=== PATIENT | female | born 1965 | race Caucasian/White ===

== ENCOUNTER 2024-01-15 20:58 | Inpatient (IN) | payer OTHER ==
[~2024-01-15] VITALS: Ht 167.6 cm; Wt 87.5 kg
[2024-01-15 21:25] LABS: BASOPHILS ABSOLUTE AUTO 0.07 K/mm3 (0.00-0.23); BASOPHILS PERCENT AUTO 1 % (0-2); EOSINOPHILS ABSOLUTE AUTO 0.08 K/mm3 (0.00-0.68); EOSINOPHILS PERCENT AUTO 1 % (0-6); Hematocrit 45.2 % (33.0-51.0); Hemoglobin 14.9 g/dL (11.5-16.0); IMMATURE GRAN ABSOLUTE AUTO 0.04 K/mm3 (0.00-0.10); IMMATURE GRAN PERCENT AUTO 0 % (0-1); LYMPHOCYTES ABSOLUTE AUTO 1.52 K/mm3 (0.84-5.20); LYMPHOCYTES PERCENT AUTO 16 % (21-46); MONOCYTES ABSOLUTE AUTO 0.85 K/mm3 (0.16-1.47); MONOCYTES PERCENT AUTO 9 % (4-13); Mean Corpuscular HGB 31.2 pg (26.0-34.0); Mean Corpuscular Volume 95 fL (80-100); Mean Platelet Volume 8.3 fL (9.1-12.4); NEUTROPHILS ABSOLUTE AUTO 6.71 K/mm3 (1.96-9.15); NEUTROPHILS PERCENT AUTO 72 % (41-73); Platelet Count 348 K/mm3 (150-400); RDW Coefficient Variation 15.1 % (11.7-14.2); RDW Standard Deviation 53.1 fL (35.1-46.3); Red Blood Cell Count 4.77 M/mm3 (3.80-5.20); White Blood Cell Count 9.27 K/mm3 (4.00-11.30)
[2024-01-15 21:43] LABS: Albumin, Blood 3.2 g/dL (3.4-5.0); Albumin/Globulin Ratio 0.7 (0.8-1.8); Bilirubin, Total 0.9 mg/dL (0.1-1.0); Bun/Creatinine Ratio 9.5 (12.0-20.0); Calcium, Blood 8.8 mg/dL (8.5-10.1); Creatinine, Blood 0.63 mg/dL (0.40-1.00); Globulin, Blood 4.3 g/dL (2.2-4.0); Total Protein, Blood 7.5 g/dL (6.4-8.2)
[2024-01-15] MEDS ORDERED: PRAM.125 PO (22:31)
[2024-01-15] MEDS ORDERED: Prozac20 MG PO (22:32)
[2024-01-15] MEDS ORDERED: FLUT1DIS8 INH (22:32)
[2024-01-15] MEDS ORDERED: ESTR2 PO (22:33)
[2024-01-15] MEDS ORDERED: OMEP20ER PO (22:33)
[2024-01-15] MEDS ORDERED: Ipratropium/Albuterol SulF 2.5-0.5MG/3 ML Amp INH ONE ×2 (23:00)
[2024-01-15] MEDS ORDERED: MethylPREDNISolone Sod Succ 125 MG Vial IV ONE (23:00)
[2024-01-15] MEDS ORDERED: CefTRIAXone Sodium 1,000 MG in NS 100 ML IV ONE (23:05)
[2024-01-15] MEDS ORDERED: LORazepam 2 MG/ML 1ML Injection IV ONE (23:25)
[2024-01-15] MEDS ORDERED: Pramipexole DI-HCL 1 Mg Tab PO ONE (23:45)
[2024-01-16] MEDS ORDERED: DiphenhydrAMINE HCl 50 MG/ML 1ML Vial IV ONE (00:15)
[2024-01-16] MEDS ORDERED: LORazepam 2 MG/ML 1ML Injection IV ONE ×2 (00:15→02:00)
[2024-01-16] MEDS ORDERED: LORazepam 2 MG/ML 1ML Injection ONE (00:19)
[2024-01-16] MEDS ORDERED: DiphenhydrAMINE HCl 50 MG/ML 1ML Vial ONE (00:20)
[2024-01-16] MEDS ORDERED: Benztropine Mesylate 1 MG/ML 2ML Amp IV ONE (00:50)
[2024-01-16] MEDS ORDERED: Acetaminophen 325 MG TABLET PO PRN (00:55)
[2024-01-16] MEDS ORDERED: Ipratropium/Albuterol SulF 2.5-0.5MG/3 ML Amp INH SCH (01:00)
[2024-01-16 01:43] LABS: Thyroid Stimulating Hormone 2.32 uIU/mL (0.360-4.800)
[2024-01-16] MEDS ORDERED: Azithromycin 500 MG in NS 250 ML IV SCH (02:00)
[2024-01-16 02:03] LABS: Magnesium, Blood 1.8 mg/dL (1.6-2.4)
[2024-01-16] MEDS ORDERED: Gabapentin 300 MG Cap PO ONE (03:00)
[2024-01-16 03:10] LABS: Base Excess Venous 2.6 mmol/L; Bicarbonate Venous 26.7 mmol/L (24.0-30.0); PCO2 Venous 39.3 mmHg (38-42); pH Blood Venous 7.44 (7.34-7.37)
[2024-01-16 03:34] LABS: Source, Urine Clean Catch
[2024-01-16 03:37] LABS: Bilirubin, Urine Neg (Neg); Blood, Urine Neg (Neg); Glucose Qualitative, Urine Neg (Neg); Ketones, Urine Neg (Neg); Leukocyte Esterase, Urine Neg (Neg); Nitrite, Urine Neg (Neg); Protein, Urine Neg (Neg); Specific Gravity, Urine 1.005 (1.003-1.022); Urobilinogen, Urine NORM (Normal)
[2024-01-16 03:41] LABS: Appearance, Urine Clear (Clear); Color, Urine Yellow (P-Yellow)
[2024-01-16 04:01] LABS: U Amphetamine Screen Not Detected; U Barbituate Screen Not Detected; U Benzodiazapine Screen DETECTED; U Buprenorphine Screen Not Detected; U Cannabinoids Screen Not Detected; U Cocaine Screen Not Detected; U Methadone Screen Not Detected; U Methamphetamine Screen Not Detected; U Opiates Screen Not Detected; U Oxycodone Screen Not Detected; U Phencyclidine Screen Not Detected
[2024-01-16 05:46] LABS: BASOPHILS ABSOLUTE AUTO 0.03 K/mm3 (0.00-0.23); BASOPHILS PERCENT AUTO 0 % (0-2); EOSINOPHILS PERCENT AUTO 0 % (0-6); Hematocrit 45.2 % (33.0-51.0); Hemoglobin 14.7 g/dL (11.5-16.0); IMMATURE GRAN ABSOLUTE AUTO 0.07 K/mm3 (0.00-0.10); IMMATURE GRAN PERCENT AUTO 1 % (0-1); LYMPHOCYTES ABSOLUTE AUTO 0.34 K/mm3 (0.84-5.20); LYMPHOCYTES PERCENT AUTO 4 % (21-46); MONOCYTES ABSOLUTE AUTO 0.06 K/mm3 (0.16-1.47); MONOCYTES PERCENT AUTO 1 % (4-13); Mean Corpuscular HGB 31.8 pg (26.0-34.0); Mean Corpuscular HGB Conc 32.5 g/dL (31.5-36.5); Mean Corpuscular Volume 98 fL (80-100); Mean Platelet Volume 8.8 fL (9.1-12.4); NEUTROPHILS ABSOLUTE AUTO 8.59 K/mm3 (1.96-9.15); NEUTROPHILS PERCENT AUTO 95 % (41-73); Platelet Count 323 K/mm3 (150-400); Red Blood Cell Count 4.62 M/mm3 (3.80-5.20); White Blood Cell Count 9.09 K/mm3 (4.00-11.30)
[2024-01-16] MEDS ORDERED: MethylPREDNISolone Sod Succ 125 MG Vial IV SCH (06:00)
[2024-01-16 06:06] LABS: Albumin/Globulin Ratio 0.7 (0.8-1.8); Bilirubin, Total 0.6 mg/dL (0.1-1.0); Bun/Creatinine Ratio 9.7 (12.0-20.0); Calcium, Blood 8.1 mg/dL (8.5-10.1); Creatinine, Blood 0.62 mg/dL (0.40-1.00); Globulin, Blood 4.2 g/dL (2.2-4.0); Magnesium, Blood 2.1 mg/dL (1.6-2.4); Potassium, Blood 4.4 mmol/L (3.5-5.5); Total Protein, Blood 7.2 g/dL (6.4-8.2)
[2024-01-16] MEDS ORDERED: GuaiFENesin 600 MG TabCR PO SCH (09:00)
[2024-01-16] MEDS ORDERED: Lactobacil 2-S.Thermo-Bifido 1 1 Cap PO SCH ×2 (09:00→21:00)
[2024-01-16] MEDS ORDERED: Enoxaparin 40 MG/0.4 ML SYR SC SCH (09:00)
[2024-01-16] MEDS ORDERED: CefTRIAXone Sodium 1,000 MG in NS 100 ML IV SCH (15:00)
[2024-01-16] MEDS ORDERED: LORazepam 2 MG/ML 1ML Injection IV PRN (17:40)
[2024-01-16] MEDS ORDERED: Polyethylene Glycol 3350 17 gm PO PRN (17:40)
[2024-01-16] MEDS ORDERED: ChlordiazePOXIDE 25 MG Cap PO PRN (17:45)
[2024-01-16] MEDS ORDERED: Folic Acid 1 MG TAB PO SCH (18:00)
[2024-01-16] MEDS ORDERED: Pramipexole DI-HCL 0.25 MG Tab PO SCH (18:00)
[2024-01-16] MEDS ORDERED: Thiamine HCl 100 MG Tab PO SCH (18:00)
[2024-01-16 18:33] VITALS: BP 131/77
--- NOTE | 2024-01-16 18:51 | NUR ---
NURSING PCU DAYSHIFT SUMMARY: Arrived from ER via gurney accompanied by RN. Roberto to unit bed via slider. Pt appears oriented, bed alarm set for safety. SBP 130's, NSR, c/o R chest/shoulder discomfort, PMD aware. 3L NC, O2 sat low 90's, respiratory status stable. Bed bath, linen change completed. Call light in reach. Monitor until rpt is given to NOC RN.
[2024-01-16] MEDS ORDERED: Mometasone/Formoterol MDI 200/5 mcg 13 GM INH SCH (19:25)
[2024-01-16] MEDS ORDERED: Ketorolac Tromethamine 30mg Vial IV PRN (19:30)
[2024-01-16 19:53] VITALS: BP 135/74
--- NOTE | 2024-01-16 20:00 | NUR ---
ASSUMPTION OF CARE PT LYING IN BED ON LEFT SIDE APPEARING TO BE IN PAIN AND MOVING LEGS CONSTANTLY. PT ALERT AND ORIENTED TO ALL. PT HR 91 AND BP 131/77. PT DOES C/O CHEST PAIN- RIGHT SIDE DEEP, PT RIGHT CHEST PAIN HAS NOT RESPONDED TO TYLENOL, TORADOL, BREATHING 9/10 STABBBING, RADIATING TO BACK. WORSE WITH BREATHING, COUGHING, MOVEMENT. TENDERNESS TO PALPATION AT LEVEL OF NIPPLE ANTERIOR CHEST AND AXILLARY. WHEN THE PT PT BREATHES IN DEEP THE PAIN LOCALIZES ABOUT RIB 7/8 MIDAXILLARY LINE. PT SAT 94% ON 3L NC. NO SOB. TACHYPNEIC. NO ABDOMINAL PAIN, N/V. MILD EDEMA NOTED IN RIGHT LEG THROUGH FOOT. PIV IN LFA. PT SAID SHE IS HUNGRY. PT LEFT IN ROOM WITH CALL LIGHT HANDY.
--- NOTE | 2024-01-16 21:32 | NUR ---
UPDATE PT RIGHT CHEST PAIN HAS NOT RESPONDED TO TYLENOL, TORADOL, BREATHING TREATMENT. PT SAYS SHE HAS HISTORY OF OA AND CAN HANDLE PAIN NORMALLY. SHE SAYS SHE AHS NEVER FELT PAIN LIKE THIS BEFORE. 9/10 STABBBING, RADIATING TO BACK. WORSE WITH BREATHING, COUGHING, MOVEMENT. TENDERNESS TO PALPATION AT LEVEL OF NIPPLE ANTERIOR CHEST AND AXILLARY, NOT POSTERIOR. DR BLACKBURN CALLED AND INFORMED. PROVIDER SAID SHE WILL LOOK AT CHART AND PUT AN ORDER IN FOR SOMETHING TO ADDRESS PAIN.
[2024-01-16] MEDS ORDERED: OxyCODONE 5 mg/Acetamin 325 mg TABLET PO PRN (22:05)
[2024-01-16 23:58] VITALS: BP 111/63
[2024-01-17] VITALS (7 sets, daily range): BP systolic 96–147; BP diastolic 66–111
[2024-01-17 03:50] LABS: Hematocrit 41.1 % (33.0-51.0); Hemoglobin 13.6 g/dL (11.5-16.0); Mean Corpuscular HGB 31.6 pg (26.0-34.0); Mean Corpuscular HGB Conc 33.1 g/dL (31.5-36.5); Mean Corpuscular Volume 95 fL (80-100); Mean Platelet Volume 8.8 fL (9.1-12.4); Platelet Count 326 K/mm3 (150-400); RDW Standard Deviation 53.2 fL (35.1-46.3); Red Blood Cell Count 4.31 M/mm3 (3.80-5.20); White Blood Cell Count 12.04 K/mm3 (4.00-11.30)
[2024-01-17 04:21] LABS: Bun/Creatinine Ratio 19.3 (12.0-20.0); Calcium, Blood 8.7 mg/dL (8.5-10.1); Creatinine, Blood 0.72 mg/dL (0.40-1.00); Potassium, Blood 4.3 mmol/L (3.5-5.5)
--- NOTE | 2024-01-17 05:30 | NUR ---
UPDATE PT FELL AT 0438. SAM RN AND CEE RN CAME IN TO ROOM FIRST TO FIND PT ARISING FROM LEFT KNEE. PT WAS SLOWLY MOVED THE 3 FEET TO THE BED, REASSESSED, VITALS CHECKED. A NEW BUMP/SWELLING WAS FOUND ON PTS LEFT WRIST BETWEEN THUMB AND INDEX FINGER, TTP BUT MOVEMENT, SENSATION, TEMP AND SIGNS OF PERFUSION DISTAL TO INJURY INTACT. COLD COMPRESS WAS PLACED ON BUMP. PT SAID SHE WAS GOING TO BATHROOM AND GOT CAUGHT ON A CORD WHICH KEPT HER FROM REACHING TOILET. SHE WAS FORCED TO URINATE ON THE FLOOR. PT CLEANED SOME OF HER URINE UP WITH THE WASH CLOTH NEARBY. WHEN SHE WENT TO SEARCH FOR ANOTHER TOWEL, SHE SLIPPED ON THE URINE AND FELL TO LEFT KNEE AND LEFT WRIST. NO HEAD CONTACT WITH FLOOR. PROVIDER ANNE WAS CALLED. HE SUGGESTED MONITORING, TAKING STEPS TO ADJUST CARE ACCORDINGLY TO PREVENT FUTURE FALLS, AND POSSIBLE XRAY OF WRIST. APPROPRIATE NURSING LEADERS NOTIFIED. APPROPRIATE PAPERWORK FILLED OUT.
[2024-01-17] MEDS ORDERED: Omeprazole 20 MG CapCR PO SCH (06:00)
--- NOTE | 2024-01-17 07:23 | NUR ---
SHIFT SUMMARY PT LYING IN BED IN MILD DISTRESS, MOVING LEGS CONSTANTLY AND C/O RIGHT SIDED CHEST PAIN.. HR NSR 88 AND BP STABLE. NO CHEST PRESSURE OR OTHER FORMS OF CHEST PAIN INDICATIVE OF ACS. RESP MILDLY TACHYPEIC. PT SAT 97% ON 5L NC. NO ABDOMINAL PAIN, N/V. PT AMBULATES WELL WHEN CORDS ARE NOT INVOLVED. FULL-WEIGHT BEARING ON BOTH LEGS. PT AGAIN INSTRUCTED TO USE CALL LIGHT WHEN BATHROOM IS NEEDED.
[2024-01-17] MEDS ORDERED: Estradiol 1 MG Tab PO SCH (09:00)
[2024-01-17] MEDS ORDERED: FLUoxetine HCL 20 MG CAP PO SCH (09:00)
--- NOTE | 2024-01-17 09:39 | NUR ---
AM NOTE this rn assumed care at 0700. vital signs stable. spo2 >90% on 3l nc. tele sinus. patient is alert and oriented x4. neuro is intact. patient is able to make needs known. patient has history of restless leg syndrome and will become uncomfortable and having more frequent episdodes due to not being on restless leg syndrome recently from running out of medication. denies chest pain/pressure or shortness of breath. patient reports pain in right shoulder and left wrist rated at 7/10 and upon reassessment rated at 4. see shift assessment for further detials. plan of care is up to date at this time
--- NOTE | 2024-01-17 12:19 | NUR ---
update md tan in to see patient and patients left wrist. md wanting splint on left wrist at this time. splint is in place.
[2024-01-17] MEDS ORDERED: Benzonatate 100 MG Cap PO PRN (14:55)
[2024-01-17] MEDS ORDERED: MethylPREDNISolone Sod Succ 40 MG VIAL IV SCH (16:00)
--- NOTE | 2024-01-17 18:02 | NUR ---
SHIFT SUMMARY vitals remain stable. patient on room air in the room with spo2 >90%, but does need oxygen with activity. patient worked with physical therapy this evening. md tan in and redid splint on arm to be above the elbow joint. no acute changes. plan remains up to date
[2024-01-17] MEDS ORDERED: rOPINIRole HCl 0.25 MG Tab PO PRN (20:10)
[2024-01-18 03:36] VITALS: BP 105/57
[2024-01-18 04:07] LABS: Percent Saturation 17.3 % (15.0-50.0)
--- NOTE | 2024-01-18 04:55 | NUR ---
SHIFT SUMMARY. SHIFT HAS BEEN MOSTLY UNREMARKABLE. PT AOX4, PLEASANT, COOPERATIVE WITH CARE, CALLS APPROPRIATELY, ABLE TO MAKE NEEDS KNOWN. HAS BEEN ABLE TO REST COMFORTABLY THROUGHOUT MUCH OF SHIFT. PAIN HAS BEEN ADEQUATELY MANAGED VIA EMAR. WITHDRAWAL SYMPTOMS HAVE BEEN MINIMAL AND WERE WELL MANAGED FROM 1 PRN DOSE OF LIBRIUM. O2 DEMANDS HAVE REMAINED STABLE AND PT HAS MAINTAINED ADEQUATE SATURATION ON 2-4 L O2 VIA NC. VITALS HAVE REMAINED STABLE. PT REMAINS STEADY SBA TO BATHROOM AND CALLS APPROPRIATELY FOR ASSISTANCE. BED LOCKED IN LOWEST POSITION. CALL LIGHT LEFT WITHIN REACH. CONTINUING TO MONITOR.
[2024-01-18 08:00] VITALS: BP 99/65
[2024-01-18 08:26] VITALS: BP 99/65
[2024-01-18] MEDS ORDERED: Polyethylene Glycol 3350 17 gm PO SCH (09:00)
[2024-01-18] MEDS ORDERED: Nicotine 14 MG PATCH TOP SCH (09:00)
--- NOTE | 2024-01-18 09:55 | NUR ---
0700 assumed pt Patient was awake and alert and oriented x 4. She was standing at the bedside d/t her legs bothering her. She states she has restless leg. She is on 2l NC when up moving her oxygenation was down to 90%. Patient has pppx 3 ext. with Edema to left lower leg greater than her right. She has a raspy cough. She has fine crackles in the bases bilat. on exhalation. She is afebrile and vs stable. Patient has 1 IV to right FA that is saline locked and for antibiotics. She has a cast to left FA and finger tips are warm to the touch and cap refill is less than 3 sec. to digits.
[2024-01-18 12:25] VITALS: BP 103/73
[2024-01-18] MEDS ORDERED: Furosemide 10 MG / ML 2ML Vial IV STA (14:35)
--- NOTE | 2024-01-18 16:19 | NUR ---
UPDATE PT HAS BEEN UP OUT OF BED [place]. THIS AFTERNOON. SHE HAS BEEN WORKING WITH PT/OT/RT WALKING AROUND WITH A WALKER IN THE HOSPITAL. SHE HAS BEEN TO THE BATHROOM MULITPLE TIMES SINCE SHE GOT LASIX THIS AFTERNOON. SHE STATED THE SWELLING WAS LESS IN HER LEGS BUT AFTER WALKING AROUND SO MUCH THE LEFT LEG HAS SWOLLEN UP TO 2-3+ EDEMA THING TO FOOT. LEGS ARE NOW ELEVATED ABOVE HEART WHILE LAYING IN BED.
--- NOTE | 2024-01-18 17:44 | NUR ---
End of shift note summary: Patient has had an active day today. She had been up and down out of bed working with all team members walking the hospital loops 3 x today. She has shown she desaturates with activity and is in need of oxygen when moving around at the moment. She still complains of pain to her right chest wall and to her legs. She does not complains of pain to her fractured left arm which remains in the brace/wrap. Dr. Lovell came by at end of shift and saw pt. Family has called patient t/o the day but now visitors in the hospital thus far. Patient's vs remain stable with 1-2L of oxygen when active otherwise she takes her oxygen off and is holding at 90-92%. Patient has been medicated for pain today with toradol and percocet. She states the percocet is not has helpful but did take it non-the less. Bruising still remains t/o her left leg and scattered bruising to left shoulder blade and right arm. Her Left Leg also remains more swollen than her right leg with 2-3+ pitting edema foot to thigh. Marta are aware.
[2024-01-18 20:58] VITALS: BP 124/85
[2024-01-19 05:19] LABS: Hematocrit 29.5 % (33.0-51.0); Hemoglobin 9.8 g/dL (11.5-16.0); Mean Corpuscular HGB 31.9 pg (26.0-34.0); Mean Corpuscular HGB Conc 33.2 g/dL (31.5-36.5); Mean Corpuscular Volume 96 fL (80-100); Platelet Count 310 K/mm3 (150-400); RDW Coefficient Variation 14.9 % (11.7-14.2); Red Blood Cell Count 3.07 M/mm3 (3.80-5.20); White Blood Cell Count 9.72 K/mm3 (4.00-11.30)
[2024-01-19 05:41] LABS: Albumin, Blood 2.8 g/dL (3.4-5.0); Anion Gap 11 mmol/L (3-11); Blood Urea Nitrogen 15 mg/dL (8-24); Bun/Creatinine Ratio 19.2 (12.0-20.0); CO2, Blood 28 mmol/L (21-32); Calcium, Blood 8.4 mg/dL (8.5-10.1); Chloride, Blood 102 mmol/L (98-108); Creatinine, Blood 0.78 mg/dL (0.40-1.00); Glomerular Filtration Rate 87 (60-); Glucose, Blood 109 mg/dL (70-99); Magnesium, Blood 2.3 mg/dL (1.6-2.4); Phosphorus, Blood 3.1 mg/dL (2.5-4.9); Sodium, Blood 137 mmol/L (136-145)
[2024-01-19 05:58] VITALS: BP 130/87
[2024-01-19 07:35] VITALS: BP 125/85
[2024-01-19] MEDS ORDERED: Furosemide 10 MG/ML 4ML Vial IV ONE (09:00)
[2024-01-19] MEDS ORDERED: NS 250 ML IV PRN (09:00)
[2024-01-19] MEDS ORDERED: ALBU90OI INH (10:35)
[2024-01-19] MEDS ORDERED: AZIT500 PO (10:36)
[2024-01-19] MEDS ORDERED: Prozac20 MG PO ×2 (10:36→11:40)
[2024-01-19] MEDS ORDERED: ESTR2 PO ×2 (10:36→11:39)
[2024-01-19] MEDS ORDERED: CEFUROXIME SOD1.5 GM PO (10:36)
[2024-01-19] MEDS ORDERED: FLUT1DIS8 INH (10:38)
[2024-01-19] MEDS ORDERED: GUAI600T33 PO (10:38)
[2024-01-19] MEDS ORDERED: MULVITA PO (10:42)
[2024-01-19] MEDS ORDERED: VISBIOME 112.51 EACH PO (10:42)
[2024-01-19] MEDS ORDERED: IPRAT-ALBUT 0.5-3 ML INH (10:42)
[2024-01-19] MEDS ORDERED: Prednisone10 MG PO (10:43)
[2024-01-19] MEDS ORDERED: MIRALAX17 GM PO (10:43)
[2024-01-19] MEDS ORDERED: Percocet 5-3251 EACH PO (10:43)
[2024-01-19] MEDS ORDERED: ROPI.25 PO (10:44)
[2024-01-19] MEDS ORDERED: B-1100 M2 PO (10:45)
[2024-01-19] MEDS ORDERED: FLUTICASONE-SA1 EA10 INH (11:42)
--- NOTE | 2024-01-19 12:54 | NUR ---
DISCHARGE NOTE PT DISCHARGED HOME AT 1200. PT PROVIDED W/ VERBAL AND WRITTEN INSTRUCTIONS AND REPORTED UNDERSTANDING. PT A&OX4, VSS, AMB W/ SBA, TOLERATING PO, VOIDING, AND PAIN MANAGED PER EMAR. HARD SCRIPT GIVEN AND BELONGINGS WERE RETURNED. PT ESCOURTED OUT VIA W/C BY EVE LANDIS.
== END 2024-01-19 12:12 | disposition home health service (06) | DRG 193 ==
LOC: ER 20:58 → ERHOLD 01-16 00:53 → MEDS 01-16 00:53 → PCU 01-16 00:53 → MEDS 01-18 20:13 → ENPENDDIS 01-19 10:26 → MEDS 01-19 12:12
PROVIDERS: Family Medicine; Internal Medicine; Physician Assistant; ADMIT Student in an Organized Health Care Education/Training Program
PROC: 2W3DX1Z Immobilization of Left Lower Arm using Splint (ICD-10-PCS; principal; 2024-01-16)
PROC: HZ2ZZZZ Detoxification Services for Substance Abuse Treatment (ICD-10-PCS; 2024-01-16)
DX: J18.0 Bronchopneumonia, unspecified organism (principal); G92.8 Other toxic encephalopathy; I50.31 Acute diastolic (congestive) heart failure; J96.21 Acute and chronic respiratory failure with hypoxia; S52.572A Other intraarticular fracture of lower end of left radius, initial encounter for closed fracture; E87.1 Hypo-osmolality and hyponatremia; J44.0 Chronic obstructive pulmonary disease with (acute) lower respiratory infection; J44.1 Chronic obstructive pulmonary disease with (acute) exacerbation; F10.239 Alcohol dependence with withdrawal, unspecified; G62.9 Polyneuropathy, unspecified; G47.33 Obstructive sleep apnea (adult) (pediatric); G25.81 Restless legs syndrome; E88.2 Lipomatosis, not elsewhere classified; F17.210 Nicotine dependence, cigarettes, uncomplicated; E87.8 Other disorders of electrolyte and fluid balance, not elsewhere classified; G25.71 Drug induced akathisia; T43.595A Adverse effect of other antipsychotics and neuroleptics, initial encounter; D64.89 Other specified anemias; I27.20 Pulmonary hypertension, unspecified; Z71.6 Tobacco abuse counseling; Z79.51 Long term (current) use of inhaled steroids; Z79.899 Other long term (current) drug therapy; W18.39XA Other fall on same level, initial encounter; Y90.0 Blood alcohol level of less than 20 mg/100 ml
CPT/HCPCS: 36415; 71046; 71260; 73110; 73502; 73552; 73562-LT; 73590; 80048; 80053; 80069; 80320; 81003; 82140; 82728; 82803; 83540; 83550; 83735; 83880; 83935; 84300; 84443; 84484; 85025; 85027; 87070; 87205; 87449; 93306; 93971; 94640; 94664; 94760; 94761; 94762; 96365-59; 96375-59; 96376-59; 97110; 97112; 97116; 97161; 97165; 97530; 99285-25; A9270; J0456; J0515; J0696; J1200; J1650; J1885; J1940; J2060; J2919; J7050; Q9967

== ENCOUNTER → 2024-01-24 | Outpatient (CLI) | payer OTHER ==
[~2024-01-24] MED LIST: ALBU90OI INH; AZIT500 PO; B-1100 M2 PO; CEFUROXIME SOD1.5 GM PO; ESTR2 PO; FLUT1DIS8 INH; FLUTICASONE-SA1 EA10 INH; GUAI600T33 PO; IPRAT-ALBUT 0.5-3 ML INH; MIRALAX17 GM PO; MULVITA PO; OMEP20ER PO; PRAM.125 PO; Percocet 5-3251 EACH PO; Prednisone10 MG PO; Prozac20 MG PO; ROPI.25 PO; VISBIOME 112.51 EACH PO
[2024-01-24 20:13] LABS: Iron Serum 107 ug/dL (50-170)
[2024-01-24 20:35] LABS: Alanine Aminotransfer (ALT/SGP 24 U/L (12-78); Albumin, Blood 3.4 g/dL (3.4-5.0); Albumin/Globulin Ratio 1.1 (0.8-1.8); Alk Phos 65 U/L (50-136); Anion Gap 11 mmol/L (3-11); Aspartate Aminotrans (AST/SGOT 26 U/L (12-37); Bilirubin, Total 1.3 mg/dL (0.1-1.0); Blood Urea Nitrogen 13 mg/dL (8-24); Bun/Creatinine Ratio 16.6 (12.0-20.0); CHOL/HDL RATIO 1.6; CO2, Blood 28 mmol/L (21-32); Calcium, Blood 8.9 mg/dL (8.5-10.1); Chloride, Blood 101 mmol/L (98-108); Cholesterol 209 mg/dL (50-200); Creatinine, Blood 0.78 mg/dL (0.40-1.00); Ferritin, Serum 85 ng/mL (8-252); Globulin, Blood 3.1 g/dL (2.2-4.0); Glomerular Filtration Rate 87 (60-); Glucose, Blood 101 mg/dL (70-99); HDL Cholesterol 128 mg/dL (>39); LDL/HDL RATIO 0.5; Low Density Lipoprotein Chol 58 mg/dL (0-110); Percent Saturation 23.3 % (15.0-50.0); Potassium, Blood 4.6 mmol/L (3.5-5.5); Sodium, Blood 135 mmol/L (136-145); Total Iron Binding Capacity 459 ug/dL (250-450); Total Protein, Blood 6.5 g/dL (6.4-8.2); Triglycerides 114 mg/dL (30-160); Very Low Density Lipoprot Chol 22 mg/dL (6-32)
== END | disposition home or self-care (01) ==
LOC: LAB SHORT 18:32 → LAB 18:32
PROVIDERS: Nurse Practitioner Family
DX: I50.30 Unspecified diastolic (congestive) heart failure (principal); G62.9 Polyneuropathy, unspecified
CPT/HCPCS: 80053; 80061; 82607; 82728; 82746; 83540; 83550; 84443

== ENCOUNTER 2024-01-26 12:21 | Emergency (ER) | payer MEDICARE ==
[~2024-01-26] VITALS: Ht 172.7 cm; Wt 87.1 kg
[2024-01-26 13:41] LABS: BASOPHILS ABSOLUTE AUTO 0.07 K/mm3 (0.00-0.23); BASOPHILS PERCENT AUTO 0 % (0-2); EOSINOPHILS ABSOLUTE AUTO 0.01 K/mm3 (0.00-0.68); EOSINOPHILS PERCENT AUTO 0 % (0-6); Hematocrit 38.9 % (33.0-51.0); Hemoglobin 12.4 g/dL (11.5-16.0); IMMATURE GRAN ABSOLUTE AUTO 0.41 K/mm3 (0.00-0.10); IMMATURE GRAN PERCENT AUTO 3 % (0-1); LYMPHOCYTES ABSOLUTE AUTO 0.88 K/mm3 (0.84-5.20); LYMPHOCYTES PERCENT AUTO 6 % (21-46); MONOCYTES ABSOLUTE AUTO 0.57 K/mm3 (0.16-1.47); MONOCYTES PERCENT AUTO 4 % (4-13); Mean Corpuscular HGB 32.5 pg (26.0-34.0); Mean Corpuscular HGB Conc 31.9 g/dL (31.5-36.5); Mean Corpuscular Volume 102 fL (80-100); Mean Platelet Volume 8.5 fL (9.1-12.4); NEUTROPHILS ABSOLUTE AUTO 13.76 K/mm3 (1.96-9.15); NEUTROPHILS PERCENT AUTO 88 % (41-73); Platelet Count 464 K/mm3 (150-400); RDW Coefficient Variation 16.3 % (11.7-14.2); RDW Standard Deviation 60.5 fL (35.1-46.3); Red Blood Cell Count 3.82 M/mm3 (3.80-5.20)
[2024-01-26 13:48] LABS: International Normalized Ratio 0.94; Prothrombin Time Results 10.1 Sec (9.7-11.5)
[2024-01-26 14:06] LABS: Albumin, Blood 3.2 g/dL (3.4-5.0); Albumin/Globulin Ratio 0.8 (0.8-1.8); Bilirubin, Total 1.2 mg/dL (0.1-1.0); Bun/Creatinine Ratio 18.7 (12.0-20.0); Calcium, Blood 8.4 mg/dL (8.5-10.1); Creatinine, Blood 0.8 mg/dL (0.40-1.00); Globulin, Blood 3.9 g/dL (2.2-4.0); Potassium, Blood 4.1 mmol/L (3.5-5.5); Total Protein, Blood 7.1 g/dL (6.4-8.2)
== END 2024-01-26 18:02 | disposition home or self-care (01) ==
LOC: ER 12:21
PROVIDERS: Physician Assistant
DX: S52.92XA Unspecified fracture of left forearm, initial encounter for closed fracture (principal); S70.02XA Contusion of left hip, initial encounter; S80.12XA Contusion of left lower leg, initial encounter; M54.6 Pain in thoracic spine; F17.210 Nicotine dependence, cigarettes, uncomplicated; W19.XXXA Unspecified fall, initial encounter; Z79.51 Long term (current) use of inhaled steroids; Z79.899 Other long term (current) drug therapy; Z79.52 Long term (current) use of systemic steroids; Z88.5 Allergy status to narcotic agent
CPT/HCPCS: 72128; 72131; 72192; 80053; 85025; 85610; 93971; 99284-25

== ENCOUNTER → 2024-08-24 | Outpatient (CLI) | payer MEDICARE ==
[2024-08-24 17:48] LABS: BASOPHILS PERCENT AUTO 1 % (0-2); EOSINOPHILS PERCENT AUTO 4 % (0-6); Hematocrit 45.2 % (33.0-51.0); Hemoglobin 15.4 g/dL (11.5-16.0); IMMATURE GRAN ABSOLUTE AUTO 0.03 K/mm3 (0.00-0.10); IMMATURE GRAN PERCENT AUTO 0 % (0-1); LYMPHOCYTES ABSOLUTE AUTO 2.07 K/mm3 (0.84-5.20); LYMPHOCYTES PERCENT AUTO 22 % (21-46); MONOCYTES ABSOLUTE AUTO 0.64 K/mm3 (0.16-1.47); MONOCYTES PERCENT AUTO 7 % (4-13); Mean Corpuscular HGB 31.4 pg (26.0-34.0); Mean Corpuscular HGB Conc 34.1 g/dL (31.5-36.5); Mean Corpuscular Volume 92 fL (80-100); Mean Platelet Volume 9.1 fL (9.1-12.4); NEUTROPHILS PERCENT AUTO 65 % (41-73); Platelet Count 349 K/mm3 (150-400); RDW Standard Deviation 43.8 fL (35.1-46.3); Red Blood Cell Count 4.91 M/mm3 (3.80-5.20); White Blood Cell Count 9.34 K/mm3 (4.00-11.30)
[2024-08-24 18:05] LABS: Alanine Aminotransfer (ALT/SGP 13 U/L (12-78); Albumin, Blood 3.6 g/dL (3.4-5.0); Alk Phos 80 U/L (50-136); Anion Gap 8 mmol/L (3-11); Aspartate Aminotrans (AST/SGOT 15 U/L (12-37); Bilirubin, Total 0.7 mg/dL (0.1-1.0); Blood Urea Nitrogen 9 mg/dL (8-24); Bun/Creatinine Ratio 11.2 (12.0-20.0); CHOL/HDL RATIO 1.8; CO2, Blood 30 mmol/L (21-32); Calcium, Blood 8.5 mg/dL (8.5-10.1); Chloride, Blood 101 mmol/L (98-108); Cholesterol 180 mg/dL (50-200); Ferritin, Serum 74 ng/mL (8-252); Free Thyroxine 1.24 ng/dL (0.70-1.60); Globulin, Blood 3.7 g/dL (2.2-4.0); Glomerular Filtration Rate 84 (60-); Glucose, Blood 107 mg/dL (70-99); HDL Cholesterol 100 mg/dL (>39); Iron Serum 98 ug/dL (50-170); LDL/HDL RATIO 0.6; Low Density Lipoprotein Chol 64 mg/dL (0-110); Percent Saturation 28.7 % (15.0-50.0); Potassium, Blood 3.4 mmol/L (3.5-5.5); Sodium, Blood 136 mmol/L (136-145); Total Iron Binding Capacity 342 ug/dL (250-450); Total Protein, Blood 7.3 g/dL (6.4-8.2); Triglycerides 78 mg/dL (30-160); Very Low Density Lipoprot Chol 15 mg/dL (6-32)
[2024-08-24 18:09] LABS: Triiodothyronine, Free 3.01 pg/mL (2.18-3.98)
== END ==
LOC: LAB 17:35 → LAB SHORT 17:35
PROVIDERS: Nurse Practitioner Family
DX: E03.9 Hypothyroidism, unspecified (principal); E61.1 Iron deficiency; I50.30 Unspecified diastolic (congestive) heart failure; I10 Essential (primary) hypertension
CPT/HCPCS: 80053; 80061; 82728; 83540; 83550; 83880; 84439; 84443; 84481; 85025

== ENCOUNTER → 2024-09-18 | Outpatient (CLI) | payer MEDICARE | LOC: LAB SHORT 17:33 → LAB 17:33 | DX: I10 Essential (primary) hypertension (principal); Z79.899 Other long term (current) drug therapy ==

== ENCOUNTER 2024-11-25 20:50 | Emergency (ER) | payer MEDICARE ==
[~2024-11-25] VITALS: Ht 167.6 cm; Wt 86.2 kg
[2024-11-25] MEDS ORDERED: DiphenhydrAMINE HCl 50 MG/ML 1ML Vial IV ONE (21:15)
[2024-11-25 21:21] LABS: BASOPHILS ABSOLUTE AUTO 0.10 K/mm3 (0.00-0.23); BASOPHILS PERCENT AUTO 1 % (0-2); EOSINOPHILS ABSOLUTE AUTO 0.40 K/mm3 (0.00-0.68); EOSINOPHILS PERCENT AUTO 3 % (0-6); Hematocrit 43.6 % (33.0-51.0); Hemoglobin 14.4 g/dL (11.5-16.0); IMMATURE GRAN ABSOLUTE AUTO 0.11 K/mm3 (0.00-0.10); IMMATURE GRAN PERCENT AUTO 1 % (0-1); LYMPHOCYTES ABSOLUTE AUTO 1.87 K/mm3 (0.84-5.20); LYMPHOCYTES PERCENT AUTO 13 % (21-46); MONOCYTES ABSOLUTE AUTO 1.23 K/mm3 (0.16-1.47); MONOCYTES PERCENT AUTO 9 % (4-13); Mean Corpuscular HGB Conc 33.0 g/dL (31.5-36.5); Mean Corpuscular Volume 93 fL (80-100); NEUTROPHILS ABSOLUTE AUTO 10.60 K/mm3 (1.96-9.15); NEUTROPHILS PERCENT AUTO 74 % (41-73); NRBC ABSOLUTE 0.00 K/mm3 (0.00-0.02); NRBC Auto 0.0 /100 WBC (0.0-0.2); Platelet Count 368 K/mm3 (150-400); RDW Coefficient Variation 14.3 % (11.7-14.2); RDW Standard Deviation 49.0 fL (35.1-46.3)
[2024-11-25 21:40] LABS: Alanine Aminotransfer (ALT/SGP 19.0 U/L (12-78); Albumin, Blood 3.4 g/dL (3.4-5.0); Albumin/Globulin Ratio 0.8 (0.8-1.8); Anion Gap 9.0 mmol/L (3-11); Aspartate Aminotrans (AST/SGOT 24.0 U/L (12-37); Bilirubin, Total 0.7 mg/dL (0.1-1.0); Blood Urea Nitrogen 7.0 mg/dL (8-24); CO2, Blood 29.0 mmol/L (21-32); Calcium, Blood 8.7 mg/dL (8.5-10.1); Chloride, Blood 98.0 mmol/L (98-108); Creatinine, Blood 0.66 mg/dL (0.40-1.00); Globulin, Blood 4.3 g/dL (2.2-4.0); Glucose, Blood 122.0 mg/dL (70-99); Magnesium, Blood 1.6 mg/dL (1.6-2.4); Phosphorus, Blood 2.7 mg/dL (2.5-4.9); Potassium, Blood 3.8 mmol/L (3.5-5.5); Sodium, Blood 132.0 mmol/L (136-145); Total Protein, Blood 7.7 g/dL (6.4-8.2)
[2024-11-25 22:21] LABS: Source, Urine Clean Catch
[2024-11-25 22:25] LABS: Bilirubin, Urine Neg (Neg); Glucose Qualitative, Urine Neg (Neg); Ketones, Urine Neg (Neg); Leukocyte Esterase, Urine Neg (Neg); Protein, Urine 1+ (Neg); Specific Gravity, Urine 1.010 (1.003-1.022); Urobilinogen, Urine NORM (Normal)
[2024-11-25 22:27] LABS: Color, Urine Yellow (P-Yellow)
[2024-11-25 22:41] LABS: U Amphetamine Screen Not Detected; U Barbituate Screen Not Detected; U Benzodiazapine Screen DETECTED; U Buprenorphine Screen Not Detected; U Cannabinoids Screen DETECTED; U Cocaine Screen Not Detected; U Methadone Screen Not Detected; U Methamphetamine Screen Not Detected; U Opiates Screen Not Detected; U Oxycodone Screen Not Detected; U Phencyclidine Screen Not Detected
[2024-11-26] MEDS ORDERED: RX Prepack 6 Tabs Oxycodone 5mg UD ONE (01:25)
[2024-11-26] MEDS ORDERED: RX Prepack 2 Sprays Naloxone HCL 4 MG/SPRAY UD ONE (01:25)
[2024-11-26] MEDS ORDERED: PRAM.125 PO (01:33)
[2024-11-26] MEDS ORDERED: AZIT250 PO (01:33)
== END 2024-11-26 03:16 | disposition home or self-care (01) ==
LOC: ER 20:50
PROVIDERS: Emergency Medicine
DX: G25.71 Drug induced akathisia (principal); J44.1 Chronic obstructive pulmonary disease with (acute) exacerbation; J18.9 Pneumonia, unspecified organism; F17.210 Nicotine dependence, cigarettes, uncomplicated; Z99.81 Dependence on supplemental oxygen; Z88.5 Allergy status to narcotic agent; Z79.899 Other long term (current) drug therapy
CPT/HCPCS: 71045; 80053; 83735; 84100; 84484; 85025; 93005; 93010; 96374; 96375; 99285-25; A9270; J0456; J1200; J7050